=== PATIENT | female | born 1985 | race Caucasian/White ===

== ENCOUNTER 2017-10-26 14:23 | Emergency (ER) | payer OTHER ==
[~2017-10-26] VITALS: Ht 152.4 cm; Wt 49.9 kg
[~2017-10-26 14:23] MED LIST: ALPR.5 PO; AMOX500 PO; CEPH500 PO; HYDACE5 PO; IBUP800 PO; MELO7.5 PO; MULVITMINE; MULVITMINE PO; OXYACE5T PO; SULF10OPSA OU
[2017-10-26 15:05] LABS: BASOPHILS ABSOLUTE AUTO 0.03 K/mm3 (0.00-0.23); BASOPHILS PERCENT AUTO 1 % (0-2); EOSINOPHILS ABSOLUTE AUTO 0.18 K/mm3 (0.00-0.68); EOSINOPHILS PERCENT AUTO 3 % (0-6); Hematocrit 42.1 % (33.0-51.0); Hemoglobin 14.2 g/dL (11.5-16.0); IMMATURE GRAN ABSOLUTE AUTO 0.04 K/mm3 (0.00-0.10); IMMATURE GRAN PERCENT AUTO 1 % (0-1); LYMPHOCYTES ABSOLUTE AUTO 1.47 K/mm3 (0.84-5.20); LYMPHOCYTES PERCENT AUTO 26 % (21-46); MONOCYTES ABSOLUTE AUTO 0.67 K/mm3 (0.16-1.47); MONOCYTES PERCENT AUTO 12 % (4-13); Mean Corpuscular HGB 29.2 pg (26.0-34.0); Mean Corpuscular HGB Conc 33.7 g/dL (31.5-36.5); Mean Corpuscular Volume 86 fL (80-100); Mean Platelet Volume 10.8 fL (9.1-12.4); NEUTROPHILS ABSOLUTE AUTO 3.34 K/mm3 (1.96-9.15); NEUTROPHILS PERCENT AUTO 58 % (41-73); Platelet Count 341 K/mm3 (150-400); RDW Coefficient Variation 13.6 % (11.7-14.2); RDW Standard Deviation 43.1 fL (35.1-46.3); Red Blood Cell Count 4.87 M/mm3 (3.80-5.20); White Blood Cell Count 5.73 K/mm3 (4.00-11.30)
[2017-10-26 15:27] LABS: Alanine Aminotransfer (ALT/SGP 30 U/L (12-78); Albumin, Blood 3.9 g/dL (3.4-5.0); Albumin/Globulin Ratio 1.1 (0.8-1.8); Alk Phos 55 U/L (50-136); Anion Gap 7 mmol/L (6-16); Aspartate Aminotrans (AST/SGOT 13 U/L (12-37); Bilirubin, Total 0.3 mg/dL (0.1-1.0); Blood Urea Nitrogen 10 mg/dL (8-24); Bun/Creatinine Ratio 15.2 (12.0-20.0); CO2, Blood 27 mmol/L (21-32); Calcium, Blood 8.7 mg/dL (8.5-10.1); Chloride, Blood 108 mmol/L (98-108); Creatinine, Blood 0.66 mg/dL (0.40-1.00); Globulin, Blood 3.6 g/dL (2.2-4.0); Glomerular Filtration Rate >60 (60-); Glucose, Blood 98 mg/dL (70-99); Potassium, Blood 3.7 mmol/L (3.5-5.5); Sodium, Blood 142 mmol/L (136-145); Total Protein, Blood 7.5 g/dL (6.4-8.2)
[2017-10-26 18:09] LABS: Source, Urine Clean Catch
[2017-10-26 18:11] LABS: Bilirubin, Urine Neg (Neg); Blood, Urine Neg (Neg); Glucose Qualitative, Urine Neg (Neg); Ketones, Urine Neg (Neg); Leukocyte Esterase, Urine Neg (Neg); Nitrite, Urine Neg (Neg); Protein, Urine Neg (Neg); Specific Gravity, Urine 1.015 (1.003-1.022); Urobilinogen, Urine NORM (Normal)
[2017-10-26 18:39] LABS: Appearance, Urine Clear (Clear); Color, Urine Pale Yellow (P-Yellow)
== END 2017-10-26 19:46 | disposition home or self-care (01) ==
LOC: ER 14:23
PROVIDERS: Psychiatry & Neurology Psychiatry
DX: M62.81 Muscle weakness (generalized) (principal); R20.0 Anesthesia of skin; Z79.899 Other long term (current) drug therapy; Z87.891 Personal history of nicotine dependence
CPT/HCPCS: 36415; 70450; 71046; 80053; 81003; 85025; 99284

== ENCOUNTER → 2018-03-20 | Outpatient (CLI) | payer OTHER ==
[2018-03-25 00:11] LABS: CHLAMYDIA BY NAA Negative (Negative); GONOCOCCUS BY NAA Negative (Negative); TRICH VAG BY NAA Negative (Negative)
== END | disposition home or self-care (01) ==
LOC: LAB 16:38 → LAB SHORT 16:38
PROVIDERS: Obstetrics & Gynecology
DX: N89.8 Other specified noninflammatory disorders of vagina (principal); Z20.2 Contact with and (suspected) exposure to infections with a predominantly sexual mode of transmission
CPT/HCPCS: 87070; 87205

== ENCOUNTER 2019-07-12 12:32 | Inpatient (IN) | payer BC, OTHER ==
[~2019-07-12] VITALS: Ht 152.4 cm; Wt 58.3 kg
[2019-07-12 13:05] LABS: Calcium, Ionized (POC) 1.12 mmol/L (1.10-1.46); Chloride (POC) 106 mmol/L (98-108); Creatinine (POC) 0.6 mg/dL (0.6-1.0); Glucose (ISTAT POC) 165 mg/dL (70-99); Hemoglobin (POC) 14.3 g/dL (12.0-16.0); Potassium (POC) 2.6 mmol/L (3.5-5.5); Sodium (POC) 139 mmol/L (135-148); Total CO2 (POC) 18 mmol/L (21-32)
[2019-07-12 13:13] LABS: Hematocrit 41.9 % (33.0-51.0); Hemoglobin 14.1 g/dL (11.5-16.0); Mean Corpuscular HGB 29.4 pg (26.0-34.0); Mean Corpuscular HGB Conc 33.7 g/dL (31.5-36.5); Mean Corpuscular Volume 88 fL (80-100); Mean Platelet Volume 11.3 fL (9.1-12.4); Platelet Count 437 K/mm3 (150-400); RDW Coefficient Variation 13.2 % (11.7-14.2); RDW Standard Deviation 42.2 fL (35.1-46.3); Red Blood Cell Count 4.79 M/mm3 (3.80-5.20); White Blood Cell Count 12.13 K/mm3 (4.00-11.30)
[2019-07-12 13:34] LABS: Alanine Aminotransfer (ALT/SGP 24 U/L (12-78); Albumin/Globulin Ratio 1.1 (0.8-1.8); Alk Phos 66 U/L (50-136); Anion Gap 13 mmol/L (6-16); Aspartate Aminotrans (AST/SGOT 18 U/L (12-37); Bilirubin, Total 0.5 mg/dL (0.1-1.0); Blood Urea Nitrogen 8 mg/dL (8-24); Bun/Creatinine Ratio 13.4 (12.0-20.0); CHOL/HDL RATIO 2.3; CO2, Blood 20 mmol/L (21-32); Chloride, Blood 106 mmol/L (98-108); Cholesterol 175 mg/dL (50-200); Globulin, Blood 3.7 g/dL (2.2-4.0); Glomerular Filtration Rate >60 (60-); Glucose, Blood 150 mg/dL (70-99); HDL Cholesterol 76 mg/dL (>39); LDL/HDL RATIO 1.1; Low Density Lipoprotein Chol 84 mg/dL (0-110); Magnesium, Blood 1.8 mg/dL (1.6-2.4); Potassium, Blood 2.8 mmol/L (3.5-5.5); Sodium, Blood 139 mmol/L (136-145); Total Protein, Blood 7.7 g/dL (6.4-8.2); Triglycerides 74 mg/dL (30-140); Troponin I <0.015 ng/mL (0.000-0.040); Very Low Density Lipoprot Chol 14 mg/dL (6-28)
[2019-07-12 13:36] LABS: International Normalized Ratio 0.93; Prothrombin Time Results 9.9 Sec (9.7-11.5)
--- NOTE | 2019-07-12 14:17 | NUR ---
PATIENT ARRIVED FROM THE [facility] TO ROOM ICU 2, VIA HOSPITAL BED, REPORT WAS GIVEN TO THIS RN, BY BRANDY LITTLEJOHN, AT BEDSIDE, PATIENT IS AWAKE, ALERT AND ORIENTED, AFEBRILE, DENIES PAIN AT THIS TIME, PATIENT HAS TR BAND ON RIGHT RADIAL ACCESS SITE, NO BLEEDING NOTED, 11 CC OF AIR IN TR BAND, WILL START DEFLATING ABOUT 1630, PATIENT AND FAMILY WERE ORIENTED TO ROOM AND NEW ENVIRONMENT, CALL LIGHT GIVEN AND EXPLAINED, PATIENT PLACED ON HEART MONITOR, PATIENT ABLE TO PARTICIPATE IN ADMISSION DOCUMENTATION AND ANSWERING QUESTIONS APPROPRIATELY, ALSO PATIENT'S , FATHER, AND SISTER IN LAW AT BEDSIDE, IMAGING IN TO DO ORDERED RENAL AND CAROTID ULTRASOUND, PATIENT IS PLEASANT AND COOPERATIVE, SANDWICH AND WATER GIVEN, PATIENT HAS NO PROBLEM SWALLOWING, SCD'S APPLIED, ALL QUESTIONS AND CONCERNS ANSWERED, CALL LIGHT IN REACH, WILL CONTINUE TO MONITOR.
[2019-07-12] MEDS ORDERED: Tri-Sprintec1 EACH (14:30)
--- NOTE | 2019-07-12 16:30 | NUR ---
PATIENT TO CT SCAN VIA BED AND ACCOMPANIED BY THIS RN, PATIENT ON TRANSPORT MONITOR.
--- NOTE | 2019-07-12 16:50 | NUR ---
PATIENT RETURNED TO ROOM AND PLACED BACK ON HEART MONITOR, PATIENT ON BEDPAN, CALL LIGHT IN REACH, WILL CONTINUE TO MONITOR.
--- NOTE | 2019-07-12 17:55 | NUR ---
SHIFT SUMMARY NOTE: NO ACUTE EVENTS SINCE PATIENT ARRIVAL TO ICU AT 1417, PATIENT IS ALERT AND ORIENTED, LUNG SOUNDS CLEAR, NSR, RIGHT RADIAL TR BAND IN PLACE AND IN PROCESS OF BEING DEFLATED, PATIENT TOLERATING WELL, NO BLEEDING, HEMATOMA, OR BRUISE NOTED, PATIENT HAD U/S CAROTID AND RENAL DONE AT BEDSIDE, TAKEN TO CT FOR CHEST/ABDOMINAL SCAN WITH CONTRAST, PATIENT TOLERATED WELL, FAMILY AT BEDSIDE, PATIENT ATE DINNER, REPORTED SOME BURNING IN EPIGASTRIC AREA BUT DENIED CHEST PRESSURE OR PAIN, FOR DETAILS SEE SHIFT ASSESSMENT DOCUMENTATION AND NURSES NOTES, CALL LIGHT IN REACH, WILL CONTINUE TO MONITOR.
--- NOTE | 2019-07-12 20:34 | NUR ---
ASSUMED CARE OF PT AT 1915. REPORT RECEIVED. TR BAND SITE INSPECTED WITH OFFGOING RN. NO OOZING OR HEMATOMA NOTED. HAVE SINCE REMOVED TR BAND. NO OOZNG OR HEMATOMA. PLACED TEGRADERM DRESSING OVER SITE. REPLACED ARM BOARD FOR PROTECTION OF SITE. INSTRUCTIONS GIVEN ON RESTRICTIONS. PT HAS BEEN UP TO TOILET. VOIDS Q.S. NO VERTIGO OR INCREASE IN CHEST PAIN. DOES STATE THAT SHE IS A BIT NAUSEAS, ALSO HAS A HEADACHE THAT WAS NOT RELIEVED BY EARLIER TYLENOL. CALL HAS BEEN MADE TO DR ZHANG. ORDERS RECEIVED. ORTHOSTATIC BLOOD PRESSURES DONE. SEE VITAL SIGN FLOWSHEET FOR DETAILS. WILL REVIEW CHART AND PLAN OF CARE FOR THIS PT.
--- NOTE | 2019-07-12 23:00 | NUR ---
CALL MADE TO DR ZHANG SECONDARY TO PT HAVING NAUSEA AND HEADACHE. PT HAS HISTORY OF MIGRAINES. ORDERS RECEIVED. HAVE MEDICATED PT WITH 4 MG ZOFRAN, TRAZADONE 25 MG, AND 5/325 MG PERCOCET. NO FURTHER COMPLAINTS VOICED. NAUSEA TENDED TO COINCIDE WITH GETTING OUT OF BED TO TOILET. UPDATE GIVEN TO MD ON PT'S STATUS. WILL CONTINUE TO MONITOR PT.
--- NOTE | 2019-07-13 02:00 | NUR ---
PT HAS BEEN ABLE TO REST THIS NIGHT. NO FURTHER COMPLAINTS OF NAUSEA OR HEADACHE. NO EKG CHANGES TO NOTE. PT'S ROOMS IN FOR THE NIGHT. PT HAS BEEN UP TO TOILET AND VOIDS Q.S. WILL CONTINUE TO MONITOR PT.
--- NOTE | 2019-07-13 05:27 | NUR ---
MEDICATED PT AGAIN WITH 5/325 MG PERCOCET AND AN ADDITIONAL TYLENOL FOR COMPLAINT OF HAVING HEADACHE. WAS ABLE TO SLEEP AFTER TRAZADONE AT HS. PT HAS NO COMPLAINTS OF CHEST PAIN OR PRESSURE. NO EKG CHANGES TO NOTE. WILL CONTINUE TO MONITOR PT, AND WILL REPORT OFF TO ONCOMING RN.
[2019-07-13 06:14] LABS: Alanine Aminotransfer (ALT/SGP 21 U/L (12-78); Albumin, Blood 3.1 g/dL (3.4-5.0); Albumin/Globulin Ratio 0.9 (0.8-1.8); Alk Phos 53 U/L (50-136); Anion Gap 6 mmol/L (6-16); Aspartate Aminotrans (AST/SGOT 20 U/L (12-37); Bilirubin, Total 0.5 mg/dL (0.1-1.0); Blood Urea Nitrogen 5 mg/dL (8-24); Bun/Creatinine Ratio 7.9 (12.0-20.0); CHOL/HDL RATIO 2.2; CO2, Blood 24 mmol/L (21-32); Calcium, Blood 8.3 mg/dL (8.5-10.1); Chloride, Blood 110 mmol/L (98-108); Cholesterol 143 mg/dL (50-200); Creatinine, Blood 0.63 mg/dL (0.40-1.00); Globulin, Blood 3.3 g/dL (2.2-4.0); Glomerular Filtration Rate >60 (60-); Glucose, Blood 87 mg/dL (70-99); HDL Cholesterol 65 mg/dL (>39); Low Density Lipoprotein Chol 64 mg/dL (0-110); Potassium, Blood 3.8 mmol/L (3.5-5.5); Sodium, Blood 140 mmol/L (136-145); Total Protein, Blood 6.4 g/dL (6.4-8.2); Triglycerides 69 mg/dL (30-140); Very Low Density Lipoprot Chol 13 mg/dL (6-28)
--- NOTE | 2019-07-13 07:42 | NUR ---
ASSUMED CARE: RECEIVED REPORT FROM NOC RN. RECOVERY AGENT ARRIVED AND IS CURRENTLY PERFORMING ECHO. RHYTHM STRIP NOTED TO BE NSR @ A RATE IN 70'S. WILL CONTINUE TO MONITOR AND ASSESS FURTHER.
--- NOTE | 2019-07-13 10:55 | NUR ---
PT ARRIVAL. PT ARRIVED TO UNIT APROX 1045. PT IS A&Ox4 AND IND IN THE ROOM. PT REQUESTED SHOWER. R WRIST SITE ASSESSED AND PT WAS SET UP FOR SOWER. VS STABLE. WILL CONTINUE TO MONITOR.
--- NOTE | 2019-07-13 11:58 | NUR ---
ASSUMED CARE OF PATIENT AT APROX 1200. ASSESSMENT DONE AT THIS TIME, LUNGS CLEAR T/O, DENIES SOB OR CP AT THIS TIME. HR REGULAR, PER TELEMETRY PT IS NSR W/ RATE OF 74. SALINE LOCKED.
--- NOTE | 2019-07-13 18:47 | NUR ---
SHIFT SUMMARY PT WITH NEW C/O BLE PAIN-DESCRIBES MORE SKELETAL THAN MUSCLE, DR GAY NOTIFIED, DC STATINS AND CPK ORDERED. PT MEDICATED WITH PERCOCET TWICE PER EMAR FOR THIS PAIN, STATES THAT MEDICATION DOES SEEM TO HELP, KPAD PLACED IN ROOM FOR PT WELL. HAS CONTINUED TO DENY CP, VSS, PER TELE SR.
--- NOTE | 2019-07-14 05:13 | NUR ---
PCU NOC SHIFT SUMMARY PATIENT REMAINED ALERT AND ORIENTED X4 T/O SHIFT. RESP E/U ON ROOM AIR. PATIENT DENIED AND CHEST PAIN OR PRESSURE T/O SHIFT - SLEPT WELL, W/ AT BEDSIDE T/O NIGHT. VSS. NO ACUTE CHANGES NOTED T/O SHIFT. PATIENT RESTING AT THIS TIME W/ CALL LIGHT W/I REACH; WILL CONTINUE TO MONITOR AND REPORT TO DAYSHIFT RN.
--- NOTE | 2019-07-14 07:28 | NUR ---
Bedside report received from Denisse Maguire RN. The pt appears to be sleeping soundly. Sinus rhythm noted onthe environmental monitoring specialist.
--- NOTE | 2019-07-14 15:10 | NUR ---
EKG COMPLETED AND PT GIVEN NITRO AND MORPHINE PER MD ORDER; CHESTPAIN REMAINS 10/[address] GAY FAXED EKG AND AWARE OF PT CONDITION.
--- NOTE | 2019-07-14 15:40 | NUR ---
CHESTPAIN RETURNED 10/10 MIDSTERNAL RADIATING TO LEFT ARM AND JAW. DIAPHORESIS DR. GAY NOTIFIED AND IN ROUTE TO ROOM.
--- NOTE | 2019-07-14 15:55 | NUR ---
DR. GAY AT BEDSIDE TALKING WITH PATIENT AND SPOUSE. PREPARING PATIENT FOR TRANSFER TO ICU 3.
--- NOTE | 2019-07-14 16:15 | NUR ---
PT TRANSFERRED VIA HOSPITAL BED TO ICU 3 BEDSIDE REPORT GIVEN TO BRANDY BAIG. SPOUSE TOOK ALL BELONGINGS FROM ROOM AT TIME OF TRANSFER FROM PCU.
--- NOTE | 2019-07-14 16:25 | NUR ---
DR. ZHANG CALLING TO [facility], AWAITING CALL BACK FOR POSSIBLE TRANSFER.
--- NOTE | 2019-07-14 16:35 | NUR ---
PT TRANSFER TO ICU 3 FROM PCU AT 1610. REPORT FROM PHYSICIAN/ALLERGY/IMMUNOLOGY. DR ZHANG, STEAMBOAT INSPECTOR AT BEDSIDE. PT TRANSFERRED FOR UNCONTROLLABLE CP. PT LAYING IN BED, EYES CLOSED, GRIMACING ON ARRIVAL. STATES PAIN 6/10. MIDSTERNUM c RADIATION TO LEFT CHEST. PT REPORTS "A LITTLE" SOB. PREVIOUS NURSE REPORTS N/V. PT REPORTS NAUSEA. PT MEDICATED c DILAUDID 0.5 MG IVP AND ZOFRAN 4 MG IVP ORDERED. PT REPORTS PAIN CONTROL FOR LESS THAN 10 MINUTES AND STATES PAIN RETURNING. LUNGS CLEAR. PT P/W/D. VSS. STEAMBOAT INSPECTOR DISCUSSING POSSIBLE TRANSFER. SO AT BEDSIDE. WILL CONTINUE TO MONITOR.
--- NOTE | 2019-07-14 17:03 | NUR ---
PT REMAINS IN NSR SINCE ARRIVAL. CONTINUES c ONGOING CHEST PAIN. RATE 60-70'S, BP WNL. PT ON RA. POWER GLIDE TO BE PLACED TO LEFT UPPER ARM. AWAITING ACCEPTING DR FROM [facility]. PT'S HAS BEEN AT BEDSIDE.
--- NOTE | 2019-07-14 17:55 | NUR ---
SHIFT SUMMARY PT TRANSFERRED FROM PCU FOR ONCONTROLLABLE CP. PT PENDING TRANSFER TO [facility] AT THIS TIME. RESTING COMFORTABLY IN BED, APPEARS TO BE SLEEPING. RESP EVEN AND UNLABORED. SO AT BEDSIDE. PT REMAINS IN NSR, VS WNL. POWER GLIDE PLACED TO LEFT UPPER ARM. AWAITING WORD FROM TRANSFER TEAM. VSS. WILL CONTINUE TO MONITOR. REPORT TO ONCOMING NURSE.
[2019-07-14 18:24] LABS: Creatine Kinase MB 5.7 ng/mL (0.0-3.6); Creatine Kinase MB Index 5.1 (0.0-4.0)
[2019-07-14 18:27] LABS: Troponin I 0.538 ng/mL (0.000-0.040)
--- NOTE | 2019-07-14 19:27 | NUR ---
JEY FROM [facility] CALLED WITH ROOM NUMBER WHICH IS [id number]. JACKELINE WILL BE PRIMARY RN, PHONE [phone].
--- NOTE | 2019-07-14 19:33 | NUR ---
CALL BACK FROM JEY AT [facility], ROOM NUMBER CHANGED TO [id number].
--- NOTE | 2019-07-14 20:37 | NUR ---
DISCHARGE: REPORT GIVEN TO [facility] RECEIVING PT TO [facility] ROOM 4213. SYSTEMS REVIEWED, ALL QUESTIONS ANSWERED. HOME HEALTH NURSE LICENSED PRACTICAL UPDATE. VITALS. PT LEFT DEPT VIA [facility] TO [facility]. PT'S OSCAR ACCOMPANYING.
== END 2019-07-14 20:35 | disposition short-term general hospital (02) | DRG 282 ==
LOC: ER 12:32 → ICUW 12:33 → ICUE 13:54 → PCU 07-13 10:21 → ICUE 07-14 16:19
PROVIDERS: Emergency Medicine; ADMIT Internal Medicine Interventional Cardiology
PROC: B2111ZZ Fluoroscopy of Multiple Coronary Arteries using Low Osmolar Contrast (ICD-10-PCS; principal; 2019-07-12)
DX: I25.42 Coronary artery dissection (principal); I21.19 ST elevation (STEMI) myocardial infarction involving other coronary artery of inferior wall; E87.6 Hypokalemia; Z87.891 Personal history of nicotine dependence; T46.6X5A Adverse effect of antihyperlipidemic and antiarteriosclerotic drugs, initial encounter; R51 Headache
CPT/HCPCS: 36415; 71045; 71275; 74175; 76937; 80047; 80053; 80061; 81025; 82550; 82553; 83735; 84484; 85014; 85027; 85610; 85730; 86850; 86900; 86901; 93005; 93010; 93306; 93454; 93880; 93975; 96374; 96375; 99152; 99285-25; A9270; C1751; C1769; C1894; J1170; J1644; J2060; J2250; J2270; J2405; J3010; J3480; J7030; J7040; Q9967

== ENCOUNTER 2019-09-24 20:08 | Observation (INO) | payer BC, OTHER ==
[~2019-09-24] VITALS: Ht 152.4 cm; Wt 61.3 kg
[~2019-09-24 20:08] MED LIST changes: +Tri-Sprintec1 EACH
[2019-09-24 20:43] LABS: BASOPHILS ABSOLUTE AUTO 0.03 K/mm3 (0.00-0.23); BASOPHILS PERCENT AUTO 0 % (0-2); EOSINOPHILS ABSOLUTE AUTO 0.11 K/mm3 (0.00-0.68); EOSINOPHILS PERCENT AUTO 1 % (0-6); Hematocrit 40.7 % (33.0-51.0); IMMATURE GRAN ABSOLUTE AUTO 0.04 K/mm3 (0.00-0.10); IMMATURE GRAN PERCENT AUTO 0 % (0-1); LYMPHOCYTES ABSOLUTE AUTO 1.83 K/mm3 (0.84-5.20); LYMPHOCYTES PERCENT AUTO 18 % (21-46); MONOCYTES ABSOLUTE AUTO 0.67 K/mm3 (0.16-1.47); MONOCYTES PERCENT AUTO 6 % (4-13); Mean Corpuscular HGB 28.9 pg (26.0-34.0); Mean Corpuscular HGB Conc 31.9 g/dL (31.5-36.5); Mean Corpuscular Volume 90 fL (80-100); Mean Platelet Volume 10.8 fL (9.1-12.4); NEUTROPHILS ABSOLUTE AUTO 7.72 K/mm3 (1.96-9.15); NEUTROPHILS PERCENT AUTO 74 % (41-73); Platelet Count 372 K/mm3 (150-400); RDW Coefficient Variation 13.8 % (11.7-14.2); RDW Standard Deviation 45.6 fL (35.1-46.3)
[2019-09-24 21:07] LABS: Troponin I <0.015 ng/mL (0.000-0.040)
[2019-09-24 21:09] LABS: Alanine Aminotransfer (ALT/SGP 30 U/L (12-78); Albumin, Blood 4.2 g/dL (3.4-5.0); Albumin/Globulin Ratio 1.2 (0.8-1.8); Alk Phos 61 U/L (50-136); Anion Gap 5 mmol/L (6-16); Aspartate Aminotrans (AST/SGOT 12 U/L (12-37); Blood Urea Nitrogen 11 mg/dL (8-24); Bun/Creatinine Ratio 15.9 (12.0-20.0); CO2, Blood 28 mmol/L (21-32); Calcium, Blood 8.9 mg/dL (8.5-10.1); Chloride, Blood 108 mmol/L (98-108); Creatinine, Blood 0.69 mg/dL (0.40-1.00); Globulin, Blood 3.5 g/dL (2.2-4.0); Glomerular Filtration Rate >60 (60-); Glucose, Blood 103 mg/dL (70-99); Potassium, Blood 3.4 mmol/L (3.5-5.5); Sodium, Blood 141 mmol/L (136-145); Total Protein, Blood 7.7 g/dL (6.4-8.2)
[2019-09-24] MEDS ORDERED: METOPROLOL TART25 MG PO (22:13)
[2019-09-24] MEDS ORDERED: PLAVIX75 MG PO (22:13)
[2019-09-24] MEDS ORDERED: PROZAC20 MG PO (22:13)
[2019-09-24] MEDS ORDERED: AMLODIPINE BESYL5 MG PO (22:13)
[2019-09-24] MEDS ORDERED: HEATHER0.35 MG PO (22:13)
[2019-09-24] MEDS ORDERED: ASPIR 8181 MG PO (22:13)
[2019-09-24] MEDS ORDERED: ATORVASTATIN CA40 MG PO (22:13)
[2019-09-24] MEDS ORDERED: NITR.4SL SL (23:09)
--- NOTE | 2019-09-25 01:16 | NUR ---
TELE REPORTS SINUS BRADYCARDIA. PT PULSE AVERAGING 50. ASYMPTOMATIC. CALL PLACED TO ANSWERING SERVICE. DR. JARRETT INSTRUCTED THAT WE CONT TO MONITOR.
--- NOTE | 2019-09-25 06:09 | NUR ---
SHIFT SUMMARY: AFEB. PULSE CONT IN LOW 60'S/HIGH 50'S. PT ASYMPTOMATIC. HAS BEEN RESTING QUIETLY WITH NO REPORTS OF CHEST PAIN OR PRESSURE THROUGH THE NIGHT. AT BEDSIDE. CALL BUTTON EXPLAINED AND PLACED WITHIN REACH.
--- NOTE | 2019-09-25 15:25 | NUR ---
SUMMARY PT IS A/O X4, IND IN ROOM, PLEASANT/COOPERATIVE AFFECT. SHE STATE MILD R SIDED CHEST PAIN 11/19. DR LUONG ORDER CARDIAC CONSULT. DR HAINES IN TO SEE HER, ORDER CTA CHEST/HEART & ECHO. WAITING RESULTS. SHE HAS BEEN NSR-SBRADY ON TELE, 55-60'S. SBP THIS AM 104. AM METOPROLOL HELD. TOURING PRODUCTION MANAGER ASSIST PT TO SHOWER TODAY. SUPPORTIVE HAS BEEN @ BEDSIDE.
--- NOTE | 2019-09-25 16:21 | NUR ---
Patient is sitting up in bed and alert with spouse Kuldip, sleeping in a chair nearby. Patient tells me about the stress of living with the fear of having another heart attack. Patient has excellent family, friend and chrurch support. Her micky is an important part of living well. I listen empathically and provide pastoral senior living sales counselor and prayer. I also leave an advance directive with patient upon her request. I would have conducted a more indepth conversation about it but the ip technology transactions attorney was waiting to come in the room. I will continue to remain available to patient and family.
--- NOTE | 2019-09-25 17:20 | NUR ---
Echocardiogram completed.
--- NOTE | 2019-09-26 03:42 | NUR ---
ALERT AND ORIENTED X 4. DENIED PAIN OR SOB THROUGH SHIFT. IVF OF .45 NS CONTINUES TO INFUSE PER MD ORDERS - SEE MAR FOR DETAILS. NO NOTED ACUTE DISTRESS. ASYMPTOMATIC. WILL CONTINUE TO MONITOR. CALL LIGHT IN REACH.
[2019-09-26] MEDS ORDERED: LOSA25 PO (11:55)
== END 2019-09-26 12:10 | disposition home or self-care (01) ==
LOC: ER 20:08 → MEDS 20:09
PROVIDERS: Emergency Medicine; ADMIT Hospitalist
DX: R07.9 Chest pain, unspecified (principal); I95.9 Hypotension, unspecified; I25.2 Old myocardial infarction; F41.9 Anxiety disorder, unspecified; Z79.82 Long term (current) use of aspirin; Z79.899 Other long term (current) drug therapy
CPT/HCPCS: 36415; 71045; 75574; 80053; 83690; 84484; 85025; 93005; 93010; 93308; 93321; 99285-25; G0378; Q9967

== ENCOUNTER → 2020-03-24 | Outpatient (CLI) | payer BC, OTHER ==
[~2020-03-24] MED LIST changes: +AMLODIPINE BESYL5 MG PO; +ASPIR 8181 MG PO; +ATORVASTATIN CA40 MG PO; +HEATHER0.35 MG PO; +LOSA25 PO; +METOPROLOL TART25 MG PO; +NITR.4SL SL; +PLAVIX75 MG PO; +PROZAC20 MG PO
== END | disposition home or self-care (01) ==
LOC: PLD 11:25 → LAB SHORT 11:25
DX: D23.5 Other benign neoplasm of skin of trunk (principal)
CPT/HCPCS: 88305

== ENCOUNTER → 2020-05-15 | Outpatient (CLI) | payer BC, OTHER | END | disposition home or self-care (01) | LOC: LAB SHORT 16:25 → LAB 16:25 | DX: N89.8 Other specified noninflammatory disorders of vagina (principal) | CPT/HCPCS: 87070; 87205 ==

== ENCOUNTER → 2020-06-10 | Outpatient (CLI) | payer OTHER ==
[2020-06-12 09:12] LABS: HPV 16 Negative (Negative); HPV 18 Negative (Negative); HPV OTHER HR TYPES Negative (Negative)
== END | disposition home or self-care (01) ==
LOC: LAB 16:01 → LAB SHORT 16:01
PROVIDERS: Obstetrics & Gynecology
DX: Z01.419 Encounter for gynecological examination (general) (routine) without abnormal findings (principal)
CPT/HCPCS: 87624; G0123

== ENCOUNTER 2020-08-04 06:37 | Day surgery (SDC) | payer OTHER ==
[~2020-08-04] VITALS: Ht 152.4 cm; Wt 62.2 kg
[~2020-08-04 06:37] MED LIST changes: +ONDA4 PO; +SPIRONOLACTONE25 MG PO
--- NOTE | 2020-08-04 06:56 | NUR ---
NOTIFIED PATIENT'S RN OR NEED OF SERUM HCG DUE TO LOW SPECIFIC GRAVITY.
--- NOTE | 2020-08-04 06:57 | NUR ---
PT ADMITTED TO [facility]. AGREES WITH PLANNED SURGERY. LUNG SOUNDS CLEAR.
[2020-08-04 11:08] LABS: BASOPHILS ABSOLUTE AUTO 0.02 K/mm3 (0.00-0.23); BASOPHILS PERCENT AUTO 0 % (0-2); EOSINOPHILS ABSOLUTE AUTO 0.02 K/mm3 (0.00-0.68); EOSINOPHILS PERCENT AUTO 0 % (0-6); Hematocrit 37.2 % (33.0-51.0); Hemoglobin 12.1 g/dL (11.5-16.0); IMMATURE GRAN PERCENT AUTO 1 % (0-1); LYMPHOCYTES ABSOLUTE AUTO 0.59 K/mm3 (0.84-5.20); LYMPHOCYTES PERCENT AUTO 4 % (21-46); MONOCYTES ABSOLUTE AUTO 0.12 K/mm3 (0.16-1.47); MONOCYTES PERCENT AUTO 1 % (4-13); Mean Corpuscular HGB 29.4 pg (26.0-34.0); Mean Corpuscular HGB Conc 32.5 g/dL (31.5-36.5); Mean Corpuscular Volume 91 fL (80-100); Mean Platelet Volume 10.9 fL (9.1-12.4); NEUTROPHILS ABSOLUTE AUTO 13.81 K/mm3 (1.96-9.15); NEUTROPHILS PERCENT AUTO 94 % (41-73); Platelet Count 299 K/mm3 (150-400); RDW Coefficient Variation 13.2 % (11.7-14.2); RDW Standard Deviation 43.8 fL (35.1-46.3); Red Blood Cell Count 4.11 M/mm3 (3.80-5.20); White Blood Cell Count 14.66 K/mm3 (4.00-11.30)
--- NOTE | 2020-08-04 12:53 | NUR ---
PT CONT. TO HAVE 7/10 PAIN ON LOWER ABD AND BACK, K PAD IN PLACE, TORADOL GIVEN, CANARY BREEDER STARTED PER ORDERS, DENIES ANY NAUSEA AT THIS TIME, CONT. TO MONITOR FOR ANY CHANGES.
--- NOTE | 2020-08-04 17:02 | NUR ---
OOB TO CHAIR WITH STANDBY ASSIST, TOLERATED WELL, PERIPAD NOTED MODERATELY SATURATED W/ SEROUSANG. DRAINAGE, NEW PERIPAD PLACED, REPORTS PAIN IS "BETTER" AFTER STEAM HEATING INSTALLER STARTED, RATES CURRENT PAIN LEVEL AT 4/10, DENIES ANY NAUSEA, TOLERATING SOME CRACKERS AND SNACKS FAIRLY WELL, VSS, STUART CATH CONT. TO DRAIN CLEAR YELLOW URINE, NO ACUTE CHANGES THIS SHIFT.
--- NOTE | 2020-08-05 05:20 | NUR ---
POD 1 S/P LAVH. PT VSS T/O NIGHT. STERI STRIPS CDI. TIMOTHY PAD CHANGED X1 W/MOD AMT BLEEDING. PAIN MGD W/SAP BODS DEVELOPER AND TORADOL W/REP RELIEF. PT HAD NO C/O NAUSEA, REP PASSING FLATUS THIS AM. STUART CATH D/C THIS AM, AWAITING FIRST VOID. PT UP W/SBA, NEDA WELL.
[2020-08-05 05:35] LABS: BASOPHILS ABSOLUTE AUTO 0.03 K/mm3 (0.00-0.23); BASOPHILS PERCENT AUTO 0 % (0-2); EOSINOPHILS ABSOLUTE AUTO 0.03 K/mm3 (0.00-0.68); EOSINOPHILS PERCENT AUTO 0 % (0-6); Hemoglobin 11.4 g/dL (11.5-16.0); IMMATURE GRAN ABSOLUTE AUTO 0.07 K/mm3 (0.00-0.10); IMMATURE GRAN PERCENT AUTO 1 % (0-1); LYMPHOCYTES ABSOLUTE AUTO 1.56 K/mm3 (0.84-5.20); LYMPHOCYTES PERCENT AUTO 11 % (21-46); MONOCYTES ABSOLUTE AUTO 0.96 K/mm3 (0.16-1.47); MONOCYTES PERCENT AUTO 7 % (4-13); Mean Corpuscular HGB 29.5 pg (26.0-34.0); Mean Corpuscular HGB Conc 32.6 g/dL (31.5-36.5); Mean Corpuscular Volume 91 fL (80-100); NEUTROPHILS ABSOLUTE AUTO 11.52 K/mm3 (1.96-9.15); NEUTROPHILS PERCENT AUTO 81 % (41-73); Platelet Count 323 K/mm3 (150-400); RDW Coefficient Variation 13.6 % (11.7-14.2); RDW Standard Deviation 44.8 fL (35.1-46.3); Red Blood Cell Count 3.86 M/mm3 (3.80-5.20); White Blood Cell Count 14.17 K/mm3 (4.00-11.30)
[2020-08-05] MEDS ORDERED: IBU800 MG PO (14:40)
[2020-08-05] MEDS ORDERED: HYDR1TAB94 PO (14:40)
--- NOTE | 2020-08-05 16:27 | NUR ---
DC'D HOME EARLIER THIS AFTERNOON, TOLERATING PO, REPORTED HAVING ADEQUATE PAIN CONTROL WITH NORCO AND IBUPROFEN, PASSING FLATUS, AMBULATING AND VOIDING WITHOUT DIFFICULTY, DC INSTRUCTIONS GIVEN, VERBALIZED UNDERSTANDING, IV DC'D, CATH INTACT.
== END 2020-08-05 15:10 | disposition home or self-care (01) ==
LOC: ORSCMMR 06:37 → ORD 07:30 → ORSCMMR 07:30 → SURS 10:37 → ORSCMMR 08-05 15:10
PROVIDERS: Obstetrics & Gynecology
PROC: 0UT9FZZ Resection of Uterus, Via Natural or Artificial Opening With Percutaneous Endoscopic Assistance (ICD-10-PCS; principal; 2020-08-04 07:30)
PROC: 0UT7FZZ Resection of Bilateral Fallopian Tubes, Via Natural or Artificial Opening With Percutaneous Endoscopic Assistance (ICD-10-PCS; principal; 2020-08-04 07:30)
DX: N80.0 Endometriosis of uterus (principal); N93.8 Other specified abnormal uterine and vaginal bleeding; I10 Essential (primary) hypertension; I25.2 Old myocardial infarction; Z79.899 Other long term (current) drug therapy; Z79.82 Long term (current) use of aspirin
CPT/HCPCS: 36415; 84703; 85025; 88307; A9270-GY; J0171; J0690; J1100; J1885; J2250; J2405; J2704; J3010; J7120

== ENCOUNTER 2022-01-07 13:31 | Day surgery (SDC) | payer OTHER ==
[~2022-01-07] VITALS: Ht 152.4 cm; Wt 58.1 kg
[~2022-01-07 13:31] MED LIST changes: +ALPRAZOLAM0.5 M1 PO; +HYDR1TAB94 PO; +IBU800 MG PO; +IBUP400; +OMEP20ER PO
[2022-01-07] MEDS ORDERED: BUSP5 PO (13:51)
[2022-01-07] MEDS ORDERED: TRAZ50 PO (13:51)
[2022-01-07] MEDS ORDERED: NITR.4SL SL (13:53)
--- NOTE | 2022-01-07 14:49 | NUR ---
01/07/22 1449 Smitha Singh WHEN ASKED PT. IF ANY PAIN, PT. VERBALIZES HER LEFT HAND HURTING FROM ATTEMPTED IV. PT. VERBALIZES BEING TOLERABLE.
== END 2022-01-07 16:18 | disposition home or self-care (01) ==
LOC: ORSCSDS 13:31
PROVIDERS: Surgery
PROC: 0DB68ZX Excision of Stomach, Via Natural or Artificial Opening Endoscopic, Diagnostic (ICD-10-PCS; principal; 2022-01-07 15:00)
PROC: 0DJD8ZZ Inspection of Lower Intestinal Tract, Via Natural or Artificial Opening Endoscopic (ICD-10-PCS; 2022-01-07 15:00)
DX: K92.1 Melena (principal); Z80.0 Family history of malignant neoplasm of digestive organs; K21.9 Gastro-esophageal reflux disease without esophagitis; F41.9 Anxiety disorder, unspecified; Z79.899 Other long term (current) drug therapy
CPT/HCPCS: J0330; J0461; J2250; J2405; J2704; J7120

== ENCOUNTER 2025-07-28 12:17 | Emergency (ER) | payer BC ==
[~2025-07-28] VITALS: Ht 152.4 cm; Wt 52.2 kg
[~2025-07-28 12:17] MED LIST changes: +BUSP5 PO; +ONDA4ODT MM; +TRAZ50 PO
[2025-07-28 12:47] LABS: BASOPHILS ABSOLUTE AUTO 0.04 K/mm3 (0.00-0.23); BASOPHILS PERCENT AUTO 1 % (0-2); EOSINOPHILS ABSOLUTE AUTO 0.14 K/mm3 (0.00-0.68); EOSINOPHILS PERCENT AUTO 2 % (0-6); Hematocrit 40.9 % (33.0-51.0); Hemoglobin 13.8 g/dL (11.5-16.0); IMMATURE GRAN ABSOLUTE AUTO 0.04 K/mm3 (0.00-0.10); IMMATURE GRAN PERCENT AUTO 1 % (0-1); LYMPHOCYTES ABSOLUTE AUTO 1.62 K/mm3 (0.84-5.20); LYMPHOCYTES PERCENT AUTO 21 % (21-46); MONOCYTES ABSOLUTE AUTO 0.51 K/mm3 (0.16-1.47); MONOCYTES PERCENT AUTO 7 % (4-13); Mean Corpuscular HGB Conc 33.7 g/dL (31.5-36.5); Mean Corpuscular Volume 87 fL (80-100); NEUTROPHILS ABSOLUTE AUTO 5.53 K/mm3 (1.96-9.15); NEUTROPHILS PERCENT AUTO 70 % (41-73); NRBC ABSOLUTE 0.00 K/mm3 (0.00-0.02); NRBC Auto 0.0 /100 WBC (0.0-0.2); Platelet Count 339 K/mm3 (150-400); RDW Coefficient Variation 13.7 % (11.7-14.2); RDW Standard Deviation 43.9 fL (35.1-46.3)
[2025-07-28 13:08] LABS: Alanine Aminotransfer (ALT/SGP 30.0 U/L (12-78); Albumin, Blood 4.1 g/dL (3.4-5.0); Albumin/Globulin Ratio 1.5 (0.8-1.8); Anion Gap 8.0 mmol/L (3-11); Aspartate Aminotrans (AST/SGOT 17.0 U/L (12-37); Bilirubin, Total 0.7 mg/dL (0.1-1.0); Blood Urea Nitrogen 12.0 mg/dL (8-24); CO2, Blood 24.0 mmol/L (21-32); Calcium, Blood 8.9 mg/dL (8.5-10.1); Chloride, Blood 112.0 mmol/L (98-108); Creatinine, Blood 0.67 mg/dL (0.40-1.00); Globulin, Blood 2.8 g/dL (2.2-4.0); Glucose, Blood 97.0 mg/dL (70-99); Potassium, Blood 3.6 mmol/L (3.5-5.5); Sodium, Blood 140.0 mmol/L (136-145); Total Protein, Blood 6.9 g/dL (6.4-8.2)
[2025-07-28] MEDS ORDERED: ESCI10 PO (14:24)
[2025-07-28] MEDS ORDERED: ALPR.25 PO (14:24)
[2025-07-28 16:13] VITALS: BP 124/84
== END 2025-07-28 16:13 | disposition home or self-care (01) ==
LOC: ER 12:17
PROVIDERS: Student in an Organized Health Care Education/Training Program
DX: R07.9 Chest pain, unspecified (principal); Z79.899 Other long term (current) drug therapy
CPT/HCPCS: 71046; 71275; 80053; 84484; 85025; 93005; 93010; 99285-25; Q9967